=== PATIENT | male | born 1970 | race Two or more races ===

== ENCOUNTER 2017-04-23 20:35 | Emergency (ER) | payer SELFPAY ==
[~2017-04-23] VITALS: Ht 165.1 cm; Wt 77.1 kg
[2017-04-23 20:52] VITALS: BP 145/89
[2017-04-23] MEDS ORDERED: Tetanus/Diptheria/Pertussis Vaccine 0.5ml Syr IM ONE (21:15)
[2017-04-23] MEDS ORDERED: Cephalexin 500mg cap ORAL ONE (21:45)
[2017-04-23] MEDS ORDERED: Bacitracin Oint UD TOPIC ONE (21:45)
[2017-04-23] MEDS ORDERED: KEFLEX500 MG ORAL (21:54)
[2017-04-23] MEDS ORDERED: IBUPROFEN600 MG ORAL (21:54)
--- NOTE | 2017-04-23 21:55 | Emergency Room Report ---
History of Present Illness General Chief Complaint: Laceration Source: Patient Present Illness HPI Is a 46-year-old male who is right-hand dominant. He presents with chief complaint of laceration to his left index finger. Onset was acute. Occurred at 10 AM this morning. 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 He continue working. He is here now to have his laceration looked at. Denies any injury. No pain. No bleeding. Allergies: Coded Allergies: No Known Allergies (Unverified , 04/23/17) Patient History Past Medical History: see triage record, old chart reviewed Past Surgical History: other Pertinent Family History: none Social History: Denies: smoking Immunizations: other Reviewed Nursing Documentation: PMH: Agreed, PSxH: Agreed Nursing Documentation-PMH Past Medical History: No Stated History Review of Systems Eye: Denies: blurred vision, eye pain ENT: Denies: ear pain, nose congestion, throat swelling Respiratory: Denies: cough, shortness of breath Cardiovascular: Denies: chest pain, palpitations Gastrointestinal: Denies: abdominal pain, diarrhea, nausea, vomiting Musculoskeletal: Denies: back pain, joint pain Skin: Denies: rash Neurological: Denies: headache, numbness Endocrine: Denies: increased thirst, increased urine Hematologic/Lymphatic: Denies: easy bruising All Other Systems: negative except mentioned in HPI Physical Exam Vital Signs Date Time Temp Pulse Resp B/P Pulse Ox O2 Delivery O2 Flow Rate FiO2 04/23/17 20:43 98.1 66 18 145/89 98 Room Air vitals normal Sp02 EP Interpretation: reviewed, normal General Appearance: well appearing, no apparent distress, alert Head: normocephalic, atraumatic Eyes: bilateral eye EOMI, bilateral eye PERRL ENT: hearing grossly normal, normal pharynx Neck: full range of motion, supple, no meningismus Respiratory: chest non-tender, lungs clear, normal breath sounds Cardiovascular #1: regular rate, rhythm, no murmur Gastrointestinal: normal bowel sounds, non tender, no mass, no organomegaly, no bruit, non-distended Musculoskeletal: back normal, gait/station normal, normal range of motion, other - Left index finger: The dorsal aspect, there is a 4 cm laceration. There is contused tissue and swelling. No foreign body. Full range of motion of the MCP, PIP, and DIP joint. Sensation normal. Neurologic: alert, oriented x3 Psychiatric: mood/affect normal Skin: warm/dry Procedures Splinting Splinting : Consent: Verbal Location: Left index finger Pre-Made Type: metal Pre-Proc Neuro Vasc Exam: normal Post-Proc Neuro Vasc Exam: normal Patient Tolerated: Well Complications: None Laceration/Wound Repair Laceration/Wound Repair : Consent: Verbal Wound Location: upper extremity Wound's Depth, Shape: linear, irregular, contused tissue Wound Length (cm): 4 Wound Explored: clean Irrigated w/ Saline (ccs): 1000 Anesthesia: 1% Lidocaine Volume Anesthetic (ccs): 2 Wound Repaired With: sutures Suture Size/Type: 5:0, proline Number of Sutures: 8 Sterile Dressing Applied?: Yes Splint Applied?: Yes Type of Splint Applied: Metal finger splint Patient Tolerated: Well Complications: None Progress digital block was done. Medical Decision Making Diagnostic Impression: Primary Impression: Laceration of finger Qualified Codes: S61.211A - Laceration without foreign body of left index finger without damage to nail, initial encounter ER Course Patient presents With laceration index finger. No foreign body. No tendon laceration. Increased risk for infection. We'll discharge home. Last Vital Signs Date Time Temp Pulse Resp B/P Pulse Ox O2 Delivery O2 Flow Rate FiO2 04/23/17 20:52 98.1 18 145/89 98 Room Air 04/23/17 20:43 66 Status: improved Disposition: HOME, SELF-CARE Condition: Stable Scripts Ibuprofen* (MOTRIN*) 600 Mg Tablet 600 MG ORAL Q8H Y for For Pain, #30 TAB 0 Refills Prov: LISA BREWSTER M.D. 04/23/17 Cephalexin* (KEFLEX*) 500 Mg Capsule 500 MG ORAL TID, #21 CAP 0 Refills Prov: LISA BREWSTER M.D. 04/23/17 Patient Instructions: Laceration Care, Adult Additional Instructions: Followup with your DrDemi in 2 days for recheck. Suture out in 7-10 days. Return if symptom worsen. LISA BREWSTER M.D. Apr 23, 2017 21:55
[2017-04-23 22:03] VITALS: BP 140/82
== END 2017-04-23 22:04 | disposition home or self-care (01) ==
LOC: EMR 21:45
DX: S61.211A Laceration without foreign body of left index finger without damage to nail, initial encounter (principal); W27.8XXA Contact with other nonpowered hand tool, initial encounter; Y92.89 Other specified places as the place of occurrence of the external cause; Z23 Encounter for immunization
CPT/HCPCS: 29130; 90471; 90715; 96372